=== PATIENT | female | born 1945 | race Caucasian/White ===

== ENCOUNTER → 2020-01-22 | Outpatient (CLI) | payer MEDICARE, OTHER ==
--- NOTE | 2020-01-22 12:09 | Diagnostic Imaging Report ---
INDICATION: Postmenopausal state COMPARISON: None available FINDINGS: AP Spine L1-L4: [BMD (g/cm2): 0.983] [T-Score: -1.8] [Z-Score: -0.3] [BMD Previous: NA] [BMD % Change: NA] LT Hip Neck: [BMD (g/cm2): 0.907] [T-Score: -0.9] [Z-Score: 0.9] LT Hip Total: [BMD (g/cm2):0.825] [T-Score:-1.4] [Z-Score: 0.2] [BMD Previous: NA] [BMD % Change: NA] RT Hip Neck: [BMD (g/cm2):0.832] [T-Score:-1.5] [Z-Score:0.3] RT Hip Total: [BMD (g/cm2):0.839] [T-score:-1.3] [Z-Score:0.3] [BMD Previous:NA] [BMD % Change:NA] *Indicates significant change from prior examination based on 95% confidence level. World Health Organization criteria for BMD interpretation classify patients as Normal (T-score at or above -1.0), Osteopenic (T-score between -1.0 and -2.5) or Osteoporotic (T-score at or below -2.5). LIMITATIONS AND MODIFICATION: None. FRACTURE RISK (FRAX SCORE): The ten year probability of (%): Major Osteoporotic Fracture: [17.9] Hip Fracture: [3.5] IMPRESSION: 1. Osteopenia (Low bone mass). 2. Baseline examination. 3. See below National Osteoporosis Foundation guidelines on when to potentially initiate pharmacologic therapy. Based on the National Osteoporosis Foundation Guidelines, pharmacologic treatment should be initiated in any of the following, unless clinical conditions suggest otherwise: * Any patient with prior fragility fracture of the hip or vertebrae. A spine fracture indicates 5X risk for subsequent spine fracture and 2X risk for subsequent hip fracture. * Osteoporosis (T-score <-2.5). * Postmenopausal women and men age 50 and older with low bone mass/osteopenia (T-score between -1.0 and -2.5) by DXA and 10-year major osteoporotic fracture greater than 20% or a 10-year probability of hip fracture greater than 3%. These fracture risks are supplied above in the FRAX score, if applicable. * Clinician judgement and/or patient preferences may indicate treatment for people with 10-year fracture probabilities above or below these levels. Dictated by: Dictated on workstation # [id number]
--- NOTE | 2020-01-25 09:20 | Diagnostic Imaging Report ---
INDICATION: Routine screening. Comparison is made to prior mammogram 08/01/2018 and 07/21/2017. 2-D and 3-D bilateral screening mammography was performed with CAD. Both breasts are heterogeneously dense, limiting the sensitivity of mammography. The parenchymal pattern is stable. No mass or malignant appearing microcalcifications are seen. There are benign calcifications present. Axillae are unremarkable. IMPRESSION: BI-RADS Category 2 No mammographic features suspicious for malignancy are identified. ACR BI-RADS Category 2: Benign findings. Result letter will be mailed to the patient. Note: At least 10% of breast cancer is not imaged by mammography. Dictated by: Dictated on workstation # [id number]
== END ==
LOC: RAD 10:27
PROVIDERS: ATTEND Family Medicine
DX: Z12.31 Encounter for screening mammogram for malignant neoplasm of breast (principal); M85.88 Other specified disorders of bone density and structure, other site; Z78.0 Asymptomatic menopausal state
CPT/HCPCS: 77063; 77067; 77080

== ENCOUNTER 2020-12-16 11:15 | Outpatient (RCR) | payer MEDICARE | END 2020-12-16 12:46 | disposition home or self-care (01) | PROVIDERS: ATTEND Nurse Practitioner | DX: M72.0 Palmar fascial fibromatosis [Dupuytren] (principal); Z98.890 Other specified postprocedural states ==

== ENCOUNTER → 2021-01-27 | Outpatient (CLI) | payer MEDICARE ==
--- NOTE | 2021-01-27 18:27 | Diagnostic Imaging Report ---
INDICATION: Routine screening. COMPARISON is made with prior mammograms from 01/22/2020 and 08/01/2018. 2-D and 3-D bilateral screening mammography was performed with CAD. Both breasts are heterogeneously dense, limiting the sensitivity of mammography. There are benign calcifications in both breasts. No mass or malignant-appearing microcalcifications are seen. Axillae are unremarkable. IMPRESSION: BI-RADS Category 2 No mammographic features suspicious for malignancy are identified. ACR BI-RADS Category 2: Benign findings. Result letter will be mailed to the patient. Note: At least 10% of breast cancer is not imaged by mammography. Dictated by: Dictated on workstation # [id number]
== END ==
LOC: RAD 10:45
PROVIDERS: ATTEND Nurse Practitioner Family
DX: Z12.31 Encounter for screening mammogram for malignant neoplasm of breast (principal)
CPT/HCPCS: 77063; 77067

== ENCOUNTER → 2021-08-20 | Outpatient (CLI) | payer MEDICARE ==
--- NOTE | 2021-08-20 14:55 | Diagnostic Imaging Report ---
Indication: Left groin mass. There is a fluid-filled structure just below the skin surface at the area of palpable abnormality in the left groin measuring 2.5 x 1.3 x 1.5 cm. This does show some blood flow within it and appears to connect to the greater saphenous vein. There is questionable arterialized flow within the greater saphenous vein which can be seen with an AV fistula. However, the common femoral vein does not demonstrate arterial flow. There is normal venous waveforms within the common femoral vein. There are normal arterial waveforms within the common femoral artery. No other abnormalities are detected. IMPRESSION: Cystic structure with blood flow in the subcutaneous tissues of the left groin accounting for the palpable abnormality which appears to connect to the greater saphenous vein. This could be a focal varix versus a potential pseudoaneurysm. Perhaps better clarification could be obtained with patient undergoing a CT of the pelvis with and without IV contrast to further delineate the anatomy. Results were discussed with Dr. Simmons prior to this dictation. Dictated by: Dictated on workstation # [id number]
== END ==
LOC: RAD 12:57
PROVIDERS: ATTEND Nurse Practitioner Family
DX: N94.89 Other specified conditions associated with female genital organs and menstrual cycle (principal); K40.90 Unilateral inguinal hernia, without obstruction or gangrene, not specified as recurrent
CPT/HCPCS: 76881

== ENCOUNTER → 2021-08-28 | Outpatient (CLI) | payer MEDICARE ==
[~2021-08-28] MED LIST: CATHETER FLUSH 10 ML SYR IV PRN; IOHEXOL 350 MG/ML 100 ML (OMNIPAQUE 350) VIAL IV ONE; NS 100 ML (IVPB) BAG IV ONE
[2021-08-28 11:24] LABS: CREATININE SERUM 0.76 MG/DL (0.60-1.30)
--- NOTE | 2021-08-28 13:48 | Diagnostic Imaging Report ---
PROCEDURE: CT abdomen and pelvis with and without contrast. TECHNIQUE: Precontrast acquisitions were acquired through the abdomen and pelvis. Multiple contiguous axial images were obtained through the abdomen and pelvis after the administration of intravenous contrast. Auto Exposure Controls were utilized during the CT exam to meet ALARA standards for radiation dose reduction. INDICATION: Vascularized palpable lesion in the groin was alerted to at recent ultrasound. CT evaluation performed for further investigation. FINDINGS: Palpable fullness in the left groin correlates with an area of venous varicosities without evidence for upstream thrombus. The cava external and common iliac veins all patent. No arterial aneurysm. There is no evidence for hernia. There is intramuscular lipomata as benign findings within contralateral right-sided abductor muscular groups. No suspicious mass. There is no abdominal pelvic small or large bowel obstruction. There is no appendicitis or diverticulitis. The unobstructed kidneys nonfocal and nonacute. No hepatobiliary, splenic or pancreatic pathology. The adrenals are negative. The aorta is nonaneurysmal. The cava patent. There is no biliary pathology. IMPRESSION: Left groin venous varicosities account for palpable fullness and the sonographic abnormality. No evidence for venous thrombus or arterial pathology. Benign right hip intramuscular lipoma is noted. No acute-appearing abdominal pelvic abnormality. No suspicious finding. Dictated by: Dictated on workstation # [id number]
== END ==
LOC: RAD 11:45
PROVIDERS: ATTEND Nurse Practitioner Family
DX: D17.79 Benign lipomatous neoplasm of other sites (principal)
CPT/HCPCS: 36415; 74178; 82565; 84520

== ENCOUNTER → 2022-02-09 | Outpatient (CLI) | payer MEDICARE ==
--- NOTE | 2022-02-09 13:56 | Diagnostic Imaging Report ---
INDICATION: Postmenopausal state. COMPARISON: 01/22/2020. FINDINGS: AP Spine L2-L4: [BMD (g/cm2): 0.879] [T-Score: -2.7] [Z-Score: -1.1] [BMD Previous: 0.983] [BMD % Change: -10.6]* LT Hip Neck: [BMD (g/cm2): 0.839] [T-Score: -1.4] [Z-Score: 0.5] LT Hip Total: [BMD (g/cm2):0.800] [T-Score:-1.7] [Z-Score: 0.1] [BMD Previous: 0.825] [BMD % Change: -3.0] RT Hip Neck: [BMD (g/cm2):0.824] [T-Score:-1.5] [Z-Score:0.4] RT Hip Total: [BMD (g/cm2):0.816] [T-score:-1.5] [Z-Score:0.2] [BMD Previous:0.839] [BMD % Change:-2.7] *Indicates significant change from prior examination based on 95% confidence level. World Health Organization criteria for BMD interpretation classify patients as Normal (T-score at or above -1.0), Osteopenic (T-score between -1.0 and -2.5) or Osteoporotic (T-score at or below -2.5). LIMITATIONS AND MODIFICATION: None. IMPRESSION: 1. Osteoporosis. 2. Bone mineral density within the lumbar spine has significantly decreased since the prior examination. Bone mineral density within the bilateral hips has not significantly changed since the prior exam. 3. See below National Osteoporosis Foundation guidelines on when to potentially initiate pharmacologic therapy. Based on the National Osteoporosis Foundation Guidelines, pharmacologic treatment should be initiated in any of the following, unless clinical conditions suggest otherwise: * Any patient with prior fragility fracture of the hip or vertebrae. A spine fracture indicates 5X risk for subsequent spine fracture and 2X risk for subsequent hip fracture. * Osteoporosis (T-score <-2.5). * Postmenopausal women and men age 50 and older with low bone mass/osteopenia (T-score between -1.0 and -2.5) by DXA and 10-year major osteoporotic fracture greater than 20% or a 10-year probability of hip fracture greater than 3%. These fracture risks are supplied above in the FRAX score, if applicable. * Clinician judgement and/or patient preferences may indicate treatment for people with 10-year fracture probabilities above or below these levels. Dictated by: Dictated on workstation # [id number]
--- NOTE | 2022-02-09 15:55 | Diagnostic Imaging Report ---
Indication: Routine screening. Comparison is made with prior mammograms 01/27/2021 and 01/22/2020. 2-D and 3-D bilateral screening mammography was performed with CAD. Both breasts are heterogeneously dense, limiting the sensitivity of mammography. There are scattered benign calcifications. No mass or malignant-appearing microcalcifications are seen. Axillae are unremarkable. IMPRESSION: BI-RADS Category 2. No mammographic features suspicious for malignancy are identified. ACR BI-RADS Category 2: Benign findings. Result letter will be mailed to the patient. Note: At least 10% of breast cancer is not imaged by mammography. Dictated by: Dictated on workstation # [id number]
== END ==
LOC: RAD 09:55
PROVIDERS: ATTEND Family Medicine
DX: Z12.31 Encounter for screening mammogram for malignant neoplasm of breast (principal); M81.0 Age-related osteoporosis without current pathological fracture; Z78.0 Asymptomatic menopausal state
CPT/HCPCS: 77063; 77067; 77080

== ENCOUNTER → 2022-03-24 | Outpatient (CLI) | payer MEDICARE ==
[~2022-03-24] VITALS: Ht 167.7 cm; Wt 69.5 kg
[~2022-03-24] MED LIST changes: -CATHETER FLUSH 10 ML SYR IV PRN; +DENOSUMAB 60 MG/1 ML (PROLIA) SQ ONE; -IOHEXOL 350 MG/ML 100 ML (OMNIPAQUE 350) VIAL IV ONE; -NS 100 ML (IVPB) BAG IV ONE
[2022-03-24 13:45] VITALS: BP 134/71
== END ==
LOC: SDC 12:47
PROVIDERS: ATTEND Nurse Practitioner Family
DX: M81.0 Age-related osteoporosis without current pathological fracture (principal)
CPT/HCPCS: 96372

== ENCOUNTER 2022-04-06 10:54 | Outpatient (CLI) | payer MEDICARE ==
[~2022-04-06] VITALS: Ht 167.6 cm; Wt 71.8 kg
[2022-04-06 11:10] VITALS: BP 109/64
[2022-04-06] MEDS ORDERED: cefTRIAXone 1 GM PRE-MIX 50 ML IV ONE ×2 (11:27→12:45)
[2022-04-06] MEDS: NS IV 1000 ML 2,000 ML ONE ×2 (11:37→12:58)
[2022-04-06] MEDS ORDERED: NS IV 1000 ML 1,000 ML IV ONE (12:30)
[2022-04-06] MEDS ORDERED: methylPREDNISolone 40 MG/ML (Solu-MEDROL) VIAL IV ONE (12:45)
[2022-04-06] MEDS ORDERED: AZITHROMYCIN 500 MG/NS 250 ML IVPB IV ONE ×2 (12:45)
[2022-04-06] MEDS ORDERED: NS IV 1000 ML 1,000 ML IV SCH (13:30)
== END 2022-04-06 16:50 | disposition home or self-care (01) ==
LOC: SDC 10:54
PROVIDERS: ATTEND Family Medicine
DX: E86.0 Dehydration (principal)
CPT/HCPCS: 96360; 96361; 96365; 96366

== ENCOUNTER → 2022-07-14 | Outpatient (CLI) | payer MEDICARE ==
--- NOTE | 2022-07-14 10:45 | Diagnostic Imaging Report ---
INDICATION: Right breast lump. Correlation is made with the diagnostic mammogram earlier the same day. Sonographic interrogation of the area palpable lump in the right breast was performed. This corresponds to the 10:00 location. No sonographic abnormality is identified. No solid or cystic mass is detected. IMPRESSION: BI-RADS Category 1 No sonographic abnormalities detected. Continued close clinical and self breast exams recommended to confirm stability of the palpable abnormality. ACR BI-RADS Category 1: Negative. Dictated by: Dictated on workstation # [id number]
--- NOTE | 2022-07-14 11:36 | Diagnostic Imaging Report ---
INDICATION: Palpable lump right breast. Correlation is made with prior mammogram 02/09/2022 and 01/27/2021. Unilateral right 2-D and 3-D diagnostic mammography was performed with CAD. There appears to be markers placed at the area palpable abnormality in the upper outer right breast. CAD is utilized. The current study was also evaluated with a Computer Aided Detection (CAD) system. Right breast is heterogeneously dense, limiting the sensitivity of mammography. No mass is identified. No malignant-appearing microcalcifications are seen. Right axilla is unremarkable. IMPRESSION: BI-RADS Category 0 No mammographic features suspicious for malignancy are identified. Even so, directed sonographic interrogation of the area of palpable abnormality is recommended and will be performed today. ACR BI-RADS Category 0: Incomplete. (Needs additional imaging evaluation). Result letter will be mailed to the patient. Note: At least 10% of breast cancer is not imaged by mammography. Dictated by: Dictated on workstation # [id number]
== END ==
LOC: RAD 09:03
PROVIDERS: ATTEND Nurse Practitioner Family
DX: N63.10 Unspecified lump in the right breast, unspecified quadrant (principal); Z85.3 Personal history of malignant neoplasm of breast
CPT/HCPCS: 76642; 77065; G0279

== ENCOUNTER 2022-09-29 11:03 | Outpatient (CLI) | payer MEDICARE ==
[2022-09-29] MEDS ORDERED: DENOSUMAB 60 MG/1 ML (PROLIA) SQ SCH (11:30)
[2022-09-29 11:39] VITALS: BP 116/64
== END 2022-09-29 11:55 | disposition home or self-care (01) ==
LOC: SDC 11:03
PROVIDERS: ATTEND Family Medicine
DX: M81.0 Age-related osteoporosis without current pathological fracture (principal)
CPT/HCPCS: 96372

== ENCOUNTER → 2023-03-01 | Outpatient (CLI) | payer MEDICARE ==
--- NOTE | 2023-03-01 15:11 | Diagnostic Imaging Report ---
EXAMINATION: 3D bilateral screening mammogram with CAD. INDICATION: Screening. COMPARISON: This study was compared to the prior exams of 07/14/2022, 02/09/2022, 01/27/2021, and 01/22/2020. PERSONAL HISTORY: At this time, there are no current complaints. FINDINGS: The fibroglandular tissue in both breasts is heterogeneously dense. This does limit the sensitivity of this exam. Overall, there does not appear to have been any significant change when compared to the prior study. No primary or secondary sign of malignancy is noted. IMPRESSION: There is no radiographic evidence for malignancy. ACR BI-RADS Category 1: Negative. Result letter will be mailed to the patient. Note: At least 10% of breast cancer is not imaged by mammography. Dictated by: Dictated on workstation # [id number]
== END ==
LOC: RAD 10:20
PROVIDERS: ATTEND Family Medicine
DX: Z12.31 Encounter for screening mammogram for malignant neoplasm of breast (principal)
CPT/HCPCS: 77063; 77067